=== PATIENT | male | born 1980 | race Caucasian/White ===

== ENCOUNTER 2016-08-15 02:14 | Observation (INO) | payer OTHER ==
[~2016-08-15] VITALS: Ht 175.3 cm; Wt 76.8 kg
[~2016-08-15 02:14] MED LIST: ADVIL200 M3 PO; EXCEDRIN1 TABLET PO; MOTRIN800 MG PO
[2016-08-15 02:47] LABS: HEMATOCRIT 34.4 % (38.0-50.0); MCH 29.9 PG (29.0-34.0); MEAN PLAT.VOLUME 10.5 uM^3 (9.0-12.4); PLATELET COUNT 186 K/uL (156-360); RBC DIS.WIDTH-CV 14.2 % (11.8-14.6); RBC DIS.WIDTH-SD 45.9 % (39-53); RED BLOOD COUNT 3.91 M/uL (4.00-5.50); WHITE BLOOD COUNT 8.1 K/uL (4.1-10.2)
[2016-08-15 02:53] LABS: CHLORIDE 111 mEq/L (99-109); POTASSIUM 3.4 mEq/L (3.7-5.4); SODIUM 140 mEq/L (136-147)
[2016-08-15 02:55] LABS: GLUCOSE 98 mg/dL (70-99)
[2016-08-15 02:56] LABS: ANION GAP 8 MEQ/L (2-14)
[2016-08-15 02:57] LABS: TOTAL BILIRUBIN 0.3 mg/dL (0.0-1.0)
[2016-08-15 02:59] LABS: ALKALINE PHOSPHATASE 62 IU/L (3-129); GFR ESTIMATE (CALCULATED) > 59 mL/min/
[2016-08-15 03:00] LABS: UREA NITROGEN (BUN) 8 mg/dL (9-23)
[2016-08-15 03:02] LABS: LIPASE 10 U/L (1.0-51.0)
[2016-08-15 03:04] LABS: TROP-I INTERPRETATION NEGATIVE; TROPONIN-I < 0.01 ng/mL (0.0-0.30)
[2016-08-15 03:44] LABS: BILIRUBIN NEGATIVE; BLOOD NEGATIVE; COLOR YELLOW ((YELLOW)); GLUCOSE (STRIP) NEGATIVE; KETONES 15; LEUKOCYTES NEGATIVE; NITRITE NEGATIVE; PROTEIN (STRIP) NEGATIVE; SPECIFIC GRAVITY 1.021 (1.000-1.030)
[2016-08-15 03:47] LABS: ADD MIUA? NO; UCUL ADDED? NO
[2016-08-15 03:53] LABS: AMPHETAMINE NEGATIVE (500 ng/mL); BARBITURATES NEGATIVE (200 ng/mL); BENZODIAZEPINES NEGATIVE (150 ng/mL); COCAINE NEGATIVE (150 ng/mL); INTERNAL CONTROLS VALID? YES; METHADONE NEGATIVE (200 ng/mL); METHAMPHETAMINE NEGATIVE (500 ng/mL); OPIATES (MORPHINE) PRESUMPTIVE POSITIVE (100 ng/mL); OXYCODONE NEGATIVE (100 ng/mL); PHENCYCLIDINE NEGATIVE (25 ng/mL); PROPOXYPHENE NEGATIVE (300 ng/mL); THC CANNABINOIDS NEGATIVE (50 ng/mL); TRICYCLIC ANTIDEPRESSANTS NEGATIVE (300 ng/mL)
[2016-08-15 03:54] LABS: ADD MEDTOX COMMENT Y
[2016-08-15 05:26] LABS: TROP-I INTERPRETATION NEGATIVE; TROPONIN-I < 0.01 ng/mL (0.0-0.30)
[2016-08-15 10:05] VITALS: BP 128/83
[2016-08-15 10:10] LABS: HDL CHOLESTEROL 40 MG/DL (Desirable>=40); LDL CHOLESTEROL 80 mg/dL (Desirable<100); NON-HDL CHOLESTEROL 96 mg/dL (Desirable<160); TOTAL CHOLESTEROL 136 mg/dL (Desirable<200); TRIGLYCERIDES 78 MG/DL (Normal: <150)
[2016-08-15 11:49] VITALS: BP 110/61
[2016-08-15 13:43] LABS: TROP-I INTERPRETATION NEGATIVE; TROPONIN-I < 0.01 ng/mL (0.0-0.30)
[2016-08-15 13:44] LABS: Estimated Average Glucose 97 mg/dL (70-123)
[2016-08-15 15:42] VITALS: BP 127/80
[2016-08-15 20:15] VITALS: BP 134/83
[2016-08-15 23:43] VITALS: BP 127/73
[2016-08-16 04:26] VITALS: BP 113/68
[2016-08-16 11:32] VITALS: BP 120/78
== END 2016-08-16 12:18 | disposition home or self-care (01) ==
LOC: EME 02:14 → EDOF 08:03 → 5WEST 08:03 → EDOF 08:03 → 5WEST 09:47
PROVIDERS: Emergency Medicine; Internal Medicine
DX: R07.89 Other chest pain (principal); Z86.74 Personal history of sudden cardiac arrest; F11.20 Opioid dependence, uncomplicated; F17.200 Nicotine dependence, unspecified, uncomplicated; D64.9 Anemia, unspecified; E87.6 Hypokalemia; Z82.49 Family history of ischemic heart disease and other diseases of the circulatory system; Z80.8 Family history of malignant neoplasm of other organs or systems
CPT/HCPCS: 71020; 80053; 80061; 81003; 83036; 83690; 84484; 84999; 85027; 93005; 99281; 99285; G0378; J1650; J1885; J2270; J3010